=== PATIENT | male | born 1965 | race Hispanic/Latino ===

== ENCOUNTER 2022-01-25 12:49 | Observation (INO) | payer BC ==
[~2022-01-25] VITALS: Ht 175.3 cm; Wt 95.0 kg
[2022-01-25] VITALS (12 sets, daily range): BP systolic 131–174; BP diastolic 65–90
[~2022-01-25 12:49] MED LIST: NAPROSYN500 MG PO
[2022-01-25 13:48] LABS: HEMOGLOBIN 15.1 g/dl (14.0-18.0); IMMATURE GRANULOCYTES 0.9 % (0.0-5.0); MEAN CORPUSCULAR HGB 32.6 pG CALC (26.0-32.0); MEAN CORPUSCULAR HGB CONC 34.3 g/dL CAL (32.0-36.0); NEUT# 3.3 thou/uL (1.82-7.42); RED BLOOD COUNT 4.63 mill/uL (4.70-6.10); RED CELL DISTRI WIDTH 11.7 % (11.5-15.5)
[2022-01-25 14:16] LABS: INTERNATIONAL NORMALIZED RATIO 0.9 RATIO (0.7-1.3); PROTHROMBIN TIME 9.4 SECONDS (9.0-12.5)
[2022-01-25 14:18] LABS: ALBUMIN 4.3 g/dL (3.2-5.0); ALKALINE PHOSPHATASE 60 u/l (38-126); ANION GAP 14 (6-22 (CALC)); BILIRUBIN, TOTAL 0.2 mg/dL (0.0-1.4); BUN 11 mg/dL (9-20); BUN/CREATININE RATIO 11 (12-20 (CALC)); CARBON DIOXIDE 22 mmol/l (22-30); CHLORIDE 105 mmol/l (95-108); GFR > 60 ML/MIN (>=60 (CALC)); GFR FOR AFR.AMER. > 60 ML/MIN (>=60 (CALC)); LIPASE 311 u/l (23-300); SGOT/AST 40 u/l (17-59); SODIUM 137 mmol/l (137-146); TOTAL PROTEIN 7.4 g/dL (6.3-8.2)
[2022-01-25 14:29] LABS: MYOGLOBIN 34 ng/mL (0 - 121)
[2022-01-25 16:36] LABS: URINE BILIRUBIN - DIPSTICK NEGATIVE (NEGATIVE); URINE BLOOD DIPSTICK NEGATIVE (NEGATIVE); URINE COLOR YELLOW; URINE GLUCOSE - DIPSTICK >=1000 mg/dL (NEGATIVE); URINE KETONE NEGATIVE (NEGATIVE); URINE LEUK ESTERASE NEGATIVE (NEGATIVE); URINE PH 5.5 (4.5-8.0); URINE PROTEIN - DIPSTICK NEGATIVE (NEG-TRACE); URINE SPECIFIC GRAVITY 1.025; URINE UROBILINOGEN - DIPSTICK 0.2 E.U./dL (0.2)
[2022-01-25 16:39] LABS: URINE NITRITE - DIPSTICK NEGATIVE (Negative)
[2022-01-26 00:22] VITALS: BP 125/61
[2022-01-26 03:30] LABS: MAGNESIUM 1.9 mg/dL (1.6-2.3)
[2022-01-26 04:13] VITALS: BP 122/64
[2022-01-26] MEDS ORDERED: FENOFIBRATE134 M1 PO (07:17)
[2022-01-26] MEDS ORDERED: FINASTERIDE5 MG PO (07:17)
[2022-01-26] MEDS ORDERED: ALLOPURINOL300 MG PO (07:17)
[2022-01-26] MEDS ORDERED: VITAMIN D1.25 MG PO (07:18)
[2022-01-26] MEDS ORDERED: METFORMIN500 M2 PO (07:18)
[2022-01-26] MEDS ORDERED: JANUVIA50 MG PO (07:18)
[2022-01-26] MEDS ORDERED: SIMVASTATIN40 MG PO (07:19)
[2022-01-26] MEDS ORDERED: GLIPIZIDE10 M2 PO (07:19)
[2022-01-26] MEDS ORDERED: TAMSULOSIN HCL0.4 MG PO (07:19)
[2022-01-26 07:40] VITALS: BP 128/70
[2022-01-26] MEDS ORDERED: ZYRTEC10 MG PO (09:21)
== END 2022-01-26 10:17 | disposition home or self-care (01) | DRG 204 ==
LOC: ED 12:49 → MS2 15:26
PROVIDERS: Nurse Practitioner; ADMIT Internal Medicine; ATTEND Internal Medicine
DX: R07.81 Pleurodynia (principal); J30.2 Other seasonal allergic rhinitis; I10 Essential (primary) hypertension; E11.65 Type 2 diabetes mellitus with hyperglycemia; E78.5 Hyperlipidemia, unspecified; M10.9 Gout, unspecified; N40.0 Benign prostatic hyperplasia without lower urinary tract symptoms; Z79.84 Long term (current) use of oral hypoglycemic drugs; Z57.2 Occupational exposure to dust; Z20.822 Contact with and (suspected) exposure to COVID-19
CPT/HCPCS: G0378